=== PATIENT | female | born 1965 | race Caucasian/White ===

== ENCOUNTER 2021-07-20 15:37 | Emergency (ER) | payer OTHER ==
[~2021-07-20 15:37] MED LIST: METFORMIN HCL500 MG PO; NORCO 5-325 TA1 EACH PO; VITAMIN D50000 UNIT PO; ZESTRIL2.5 MG PO; ZOFRAN4 MG PO
[2021-07-20 16:36] LABS: BASOPHIL 1.2 % (0-2); EOSINOPHIL 2.5 % (0-5); HCT 45.1 % (37.0-47.0); HGB 15.3 g/dl (12.5-16.0); LYMPHOCYTE 31.5 % (15-48); MCH 30.9 pg (25.0-31.0); MCHC 33.9 g/dL (32.0-36.0); MCV 91.1 fL (78.0-100.0); MONOCYTE 6.1 % (0-12); MPV 9.6 fL (6.0-9.5); NEUTROPHIL 58.1 % (41-80); NRBC 0; PLT 312 K/uL (150-400); RBC 4.95 M/uL (4.20-5.40); WBC 7.3 K/uL (4.0-10.5)
[2021-07-20 16:41] LABS: BILIRUBIN NEGATIVE (NEGATIVE); BLOOD NEGATIVE Ery/uL (NEGATIVE); CLARITY CLEAR (CLEAR); COLOR YELLOW (YELLOW); GLUCOSE (U) 3+ mg/dL (NORMAL); LEUKOCYTES NEGATIVE Leu/uL (NEGATIVE); NITRITE NEGATIVE (NEGATIVE); PROTEIN NEGATIVE (NEGATIVE); SPECIFIC GRAVITY >=1.030 (1.001-1.030); UROBILINOGEN 0.2 mg/dL (0.2-1.0); pH 5.5 (5.0-9.0)
[2021-07-20 16:45] LABS: INR 0.82 (0.9-1.2); PROTHROMBIN TIME 10.8 SECONDS (11.8-13.4)
[2021-07-20 16:47] LABS: D-DIMER < 0.27 ug/mLFEU (0.00-0.41)
[2021-07-20 16:58] LABS: ALBUMIN 3.9 g/dL (3.4-5.0); BILIRUBIN - TOTAL 0.3 mg/dL (0.2-1.0); CREATININE 0.5 mg/dL (0.51-0.95); GLOBULIN (CALCULATION) 3.8 g/dL; POTASSIUM 4.1 mmol/L (3.5-5.1); TOTAL PROTEIN 7.7 g/dL (6.4-8.2)
[2021-07-20 17:29] LABS: INFLUENZA A NAA NEGATIVE (NEGATIVE)
[2021-07-20 17:31] LABS: CORONAVIRUS 2019 SARS-COV-2 POSITIVE (NEGATIVE)
== END 2021-07-20 19:50 | disposition home or self-care (01) ==
LOC: FER 15:37
PROVIDERS: Nurse Practitioner Family
DX: U07.1 COVID-19 (principal); I10 Essential (primary) hypertension; E11.9 Type 2 diabetes mellitus without complications; Z79.84 Long term (current) use of oral hypoglycemic drugs; Z79.899 Other long term (current) drug therapy
CPT/HCPCS: 36415; 71045; 71275; 80053; 81003; 84484; 85025; 85379; 85610; 93005; J1885; Q9967; U0002